=== PATIENT | female | born 1990 | race Caucasian/White ===

== ENCOUNTER 2021-10-21 17:05 | Inpatient (IN) | payer OTHER ==
[2021-10-21 17:43] VITALS: BMI 27.6
[2021-10-21] MEDS ORDERED: hydrALAZINE 20 MG/ML VIAL SLOW IVP PRN (18:09)
[2021-10-21] MEDS ORDERED: HYDROcodone/Acetaminophen 5/325 mg Tablet PO PRN ×2 (18:09)
[2021-10-21] MEDS ORDERED: Acetaminophen 500 MG TAB PO PRN (18:09)
[2021-10-21] MEDS ORDERED: Carboprost 250 MCG/ML AMP IM PRN (18:09)
[2021-10-21] MEDS ORDERED: Ibuprofen 800 MG TAB PO PRN (18:09)
[2021-10-21] MEDS ORDERED: Ondansetron PF 4 MG/2 ML Vial IVP PRN (18:09)
[2021-10-21] MEDS ORDERED: Misoprostol 200 MCG TAB PR PRN (18:09)
[2021-10-21] MEDS ORDERED: Butorphanol Tartrate 1 MG/ML VIAL SLOW IVP PRN (18:09)
[2021-10-21] MEDS ORDERED: Methylergonovine 0.2 MG/ML VIAL IM PRN (18:09)
[2021-10-21] MEDS ORDERED: Diphenoxylate HCl/Atropine Tablet PO PRN (18:09)
[2021-10-21] MEDS ORDERED: Promethazine HCl 25 MG/ML VIAL IM PRN (18:09)
[2021-10-21] MEDS ORDERED: Lidocaine 1% (PF) 30 ML VIAL SC PRN (18:09)
[2021-10-21] MEDS ORDERED: NS w/ Oxytocin 30 units 500 ML IV SCH (18:15)
[2021-10-21] MEDS ORDERED: Misoprostol 100 MCG TAB ONE (18:24)
[2021-10-21] MEDS: Misoprostol 100 MCG TAB VAG SCH ×2 (18:36→22:04)
[2021-10-21 18:43] LABS: Hemoglobin 12.5 g/dL (12.0-15.5); Mean Corpuscular HGB CONC 35.4 g/dL (32.0-36.0); Mean Corpuscular Hemoglobin 30.6 pg (27.0-33.0); Mean Corpuscular Volume 86.5 fl (81.6-98.3); Mean Platelet Volume 11.7 fl (7.4-10.4); Platelet Count 168 10x3/uL (150-450); RBC Distribution Width 12.6 % (11.5-14.5); Red Blood Cell (RBC) Count 4.08 10x6/uL (3.90-5.03); White Blood Cell (WBC) Count 9.4 10x3/uL (3.5-10.5)
[2021-10-21 19:15] LABS: Hep B Surf Ag Non-Reactive S/CO (NonReactive); Syphilis Antibody Nonreactive (Nonreactive); Syphilis Antibody Index 0.08 S/CO (<1.00 Non-Reactive)
[2021-10-21 19:16] LABS: HBSAg Index 0.17 S/CO (0-0.99)
[2021-10-21 19:47] LABS: SARS-CoV-2 NAA Rapid Test Not Detected (NotDetected)
[2021-10-22] MEDS ORDERED: Fentanyl 2 mcg/Bup 0.1% Cadd 100 ML ONE (05:04)
[2021-10-22] MEDS ORDERED: Moisturizing Cream (Eucerin) 113 GM JAR TOP PRN (05:54)
[2021-10-22] MEDS ORDERED: Promethazine HCl 25 MG/ML VIAL IM PRN (05:54)
[2021-10-22] MEDS ORDERED: Naloxone HCl 0.4 mg/ml Vial IVP PRN ×2 (05:54)
[2021-10-22] MEDS ORDERED: ePHEDrine Sulfate 50 MG/10 ML VIAL SLOW IVP PRN (05:54)
[2021-10-22] MEDS ORDERED: diphenhydrAMINE 50 MG/ML VIAL IVP PRN (05:54)
[2021-10-22] MEDS ORDERED: Lactated Ringer's 500 ML IV PRN (05:54)
[2021-10-22] MEDS ORDERED: Acetaminophen 325 MG TAB PO PRN (05:54)
[2021-10-22] MEDS ORDERED: Ondansetron PF 4 MG/2 ML Vial IVP PRN ×2 (05:54→17:54)
[2021-10-22] MEDS ORDERED: Fentanyl 2 mcg/Bupivacaine 0.1% Cassette 100 ML EPIDURAL SCH (06:00)
[2021-10-22] MEDS ORDERED: Communication Order-Pharmacy FS SCH (06:00)
[2021-10-22] MEDS ORDERED: NS w/ Oxytocin 30 units 500 ML IV SCH ×2 (08:30→17:54)
[2021-10-22] MEDS: Lactated Ringer's 1,000 ML IV SCH ×2 (10:15→15:58)
[2021-10-22] MEDS: Misoprostol 100 MCG TAB VAG SCH ×3 (15:57→20:21)
[2021-10-22] MEDS ORDERED: hydrALAZINE 20 MG/ML VIAL SLOW IVP PRN (17:54)
[2021-10-22] MEDS ORDERED: Misoprostol 200 MCG TAB VAG PRN (17:54)
[2021-10-22] MEDS ORDERED: HYDROcodone/Acetaminophen 5/325 mg Tablet PO PRN ×2 (17:54)
[2021-10-22] MEDS ORDERED: Milk Of Magnesia 30 ML UDCUP PO PRN (17:54)
[2021-10-22] MEDS ORDERED: Methylergonovine 0.2 MG/ML VIAL IM PRN (17:54)
[2021-10-22] MEDS ORDERED: Bisacodyl 10 MG SUPP PR PRN (17:54)
[2021-10-22] MEDS: Docusate 100 MG CAP PO SCH (21:12)
[2021-10-23] MEDS: Ibuprofen 800 MG TAB PO SCH ×4 (01:09→21:41)
[2021-10-23] MEDS ORDERED: Lanolin Ointment 7 GM TUBE TOP PRN (05:49)
[2021-10-23] MEDS: Ferrous Sulfate 325 MG TAB PO SCH ×2 (07:09→16:10)
[2021-10-23] MEDS: Docusate 100 MG CAP PO SCH ×2 (08:21→21:41)
[2021-10-24] MEDS: Ibuprofen 800 MG TAB PO SCH (05:52)
[2021-10-24] MEDS: Ferrous Sulfate 325 MG TAB PO SCH (07:10)
[2021-10-24 07:29] VITALS: BP 110/64; TEMP 98.7
[2021-10-24] MEDS: Docusate 100 MG CAP PO SCH (08:20)
== END 2021-10-24 11:45 | disposition home or self-care (01) | DRG 807 ==
LOC: CSHLD 17:05 → CSHPP 10-22 15:35
PROVIDERS: ADMIT Obstetrics & Gynecology; ATTEND Obstetrics & Gynecology
PROC: 10E0XZZ Delivery of Products of Conception, External Approach (ICD-10-PCS; principal; 2021-10-22)
PROC: 10907ZC Drainage of Amniotic Fluid, Therapeutic from Products of Conception, Via Natural or Artificial Opening (ICD-10-PCS; 2021-10-22)
PROC: 3E033VJ Introduction of Other Hormone into Peripheral Vein, Percutaneous Approach (ICD-10-PCS; 2021-10-22)
PROC: 3E0P7VZ Introduction of Hormone into Female Reproductive, Via Natural or Artificial Opening (ICD-10-PCS; 2021-10-22)
DX: O36.5930 Maternal care for other known or suspected poor fetal growth, third trimester, not applicable or unspecified (principal); Z37.0 Single live birth; Z3A.37 37 weeks gestation of pregnancy; Z20.822 Contact with and (suspected) exposure to COVID-19; O32.8XX0 Maternal care for other malpresentation of fetus, not applicable or unspecified
CPT/HCPCS: 36415; 51702; 85027; 86780; 86850; 86900; 86901; 87340; 88307; J0595; J2405; J2590; J7120; U0002